=== PATIENT | female | born 1950 | race Caucasian/White ===

== ENCOUNTER 2016-09-19 09:22 | Emergency (ER) | payer MEDICARE, MEDICAID ==
[2016-09-19 10:29] LABS: Bilirubin Negative (Negative); Blood, Urine Negative (Negative); Clarity Clear (Clear); Glucose, Urine (Dipstick) Negative (Negative); Leukocyte Negative (Negative); Nitrite Negative (Negative); Protein, Urine (Dipstick) Negative (Neg-Trace); Specific Gravity, Urine 1.015 (1.005-1.030); Urobilinogen 0.2 mg/dL (0.2-1.0)
[2016-09-19 11:05] LABS: ALT (SGPT) 17 U/L (0-55); AST (SGOT) 15 U/L (5-34); Albumin 4.5 g/dL (3.4-4.8); Alkaline Phosphatase 89 U/L (40-150); Anion Gap 12 mmol/L (10-20); BUN (Urea Nitrogen) 14 mg/dL (9.8-20.1); Bilirubin, Total 0.4 mg/dL (0.2-1.2); Calc. Creatinine Clearance 0 mL/min (70-130); Calcium 9.2 mg/dL (7.8-10.44); Carbon Dioxide 23 mmol/L (23-31); Chloride 104 mmol/L (98-107); Estimated GFR-MDRD 81; Globulin 2.2 g/dL (2.4-3.5); Glucose 124 mg/dL (80-115); Potassium 4.3 mmol/L (3.5-5.1); Protein, Total 6.7 g/dL (5.8-8.1); Sodium 135 mmol/L (136-145)
== END 2016-09-19 11:25 | disposition home or self-care (01) ==
LOC: MADERS 09:22
DX: R33.9 Retention of urine, unspecified (principal); E03.9 Hypothyroidism, unspecified; E78.5 Hyperlipidemia, unspecified; E78.00 Pure hypercholesterolemia, unspecified; I10 Essential (primary) hypertension; Z79.899 Other long term (current) drug therapy
CPT/HCPCS: 36415; 51702; 80053; 81003

== ENCOUNTER 2016-09-20 08:25 | Emergency (ER) | payer MEDICARE, MEDICAID ==
[2016-09-20 09:44] LABS: Blood, Urine Moderate (Negative); Glucose, Urine (Dipstick) Negative (Negative); Leukocyte Large (Negative); Nitrite Negative (Negative); Protein, Urine (Dipstick) 100 mg/dL (Neg-Trace)
[2016-09-20 09:54] LABS: Bilirubin Negative (Negative); Clarity Hazy (Clear); Icto Negative (Negative)
[2016-09-20 09:55] LABS: Bacteria/HPF 1+ HPF (None Seen); Crystals/HPF 1+ AMORPH PHOS HPF (Negative); Other Microscopic Description C&S SET UP; Squamous Epithelial 0-3 HPF (0-3)
[2016-09-20] MEDS ORDERED: Sulfameth/Trimethoprim DS 800-160mg TAB ONE (10:14)
== END 2016-09-20 10:13 ==
LOC: MADERS 08:25
DX: T83.091A Other mechanical complication of indwelling urethral catheter, initial encounter (principal); N39.0 Urinary tract infection, site not specified; E03.9 Hypothyroidism, unspecified; E78.5 Hyperlipidemia, unspecified; I10 Essential (primary) hypertension
CPT/HCPCS: 51702; 81003; 81015; 87077; 87086; 87186

== ENCOUNTER 2016-09-26 20:35 | Emergency (ER) | payer MEDICARE, MEDICAID ==
[2016-09-26 21:13] LABS: Bilirubin Negative (Negative); Blood, Urine Negative (Negative); Clarity Clear (Clear); Glucose, Urine (Dipstick) Negative (Negative); Leukocyte Negative (Negative); Nitrite Negative (Negative); Protein, Urine (Dipstick) Negative (Neg-Trace); Specific Gravity, Urine 1.015 (1.005-1.030)
== END 2016-09-26 21:37 | disposition home or self-care (01) ==
LOC: MADERS 20:35
DX: R33.9 Retention of urine, unspecified (principal); E03.9 Hypothyroidism, unspecified; I10 Essential (primary) hypertension; E78.5 Hyperlipidemia, unspecified; E78.00 Pure hypercholesterolemia, unspecified; F31.9 Bipolar disorder, unspecified; G62.9 Polyneuropathy, unspecified
CPT/HCPCS: 81003; 87086; 99285

== ENCOUNTER 2017-03-11 08:35 | Outpatient (CLI) | payer MEDICARE, MEDICAID ==
[2017-03-11 09:13] LABS: Hemoglobin 9.7 g/dL (12.0-16.0); Mean Corpuscular HGB CONC 30.1 g/dL (32.0-36.0); Mean Corpuscular Hemoglobin 24.9 pg (27.0-31.0); Mean Corpuscular Volume 82.6 fl (81.0-99.0); Mean Platelet Volume 6.2 fL (7.4-10.4); Platelet Count 242 thou/uL (130-400); White Blood Cell (WBC) Count 6.2 thou/uL (4.8-10.8)
[2017-03-11 09:33] LABS: Anisocytosis SLIGHT = 6-15 cells (100X) (0-5/hpf); PLT Morphology Comment Appears Adequate
[2017-03-11 09:40] LABS: ALT (SGPT) 23 U/L (8-55); AST (SGOT) 17 U/L (5-34); Albumin 4.2 g/dL (3.4-4.8); Alkaline Phosphatase 82 U/L (40-150); Anion Gap 10 mmol/L (10-20); BUN (Urea Nitrogen) 10 mg/dL (9.8-20.1); Bilirubin, Total 0.3 mg/dL (0.2-1.2); Calc. Creatinine Clearance 0 mL/min (70-130); Calcium 9.4 mg/dL (7.8-10.44); Carbon Dioxide 26 mmol/L (23-31); Cardiac Risk 3.1 (Less than 4.5); Chloride 109 mmol/L (98-107); Cholesterol 127 mg/dl (< 200 Desired); Estimated GFR-MDRD 72; Globulin 2.6 g/dL (2.4-3.5); Glucose 113 mg/dL (80-115); HDL Cholesterol 41 mg/dL (>60 Neg Risk); LDL Cholesterol, Calculated 55 mg/dL; Potassium 4.3 mmol/L (3.5-5.1); Protein, Total 6.8 g/dL (6.0-8.3); Sodium 141 mmol/L (136-145); Triglycerides 153 mg/dL (Less than 150)
[2017-03-11 09:57] LABS: Free T4 (Free Thyroxine) 0.95 ng/dL (0.70-1.48); Thyroid Stimulating Hormone 1.3836 uIU/mL (0.35-4.94); Vitamin D, 25 Hydroxy 25.2 ng/ml (> 30.0)
== END 2017-03-11 08:36 | disposition home or self-care (01) ==
LOC: MADLABBHPM 08:35
PROVIDERS: ATTEND Family Medicine
DX: E03.9 Hypothyroidism, unspecified (principal); E78.1 Pure hyperglyceridemia; F31.9 Bipolar disorder, unspecified; M81.0 Age-related osteoporosis without current pathological fracture
CPT/HCPCS: 36415; 80053; 80061; 80178; 82306; 84439; 84443; 85025

== ENCOUNTER 2017-03-26 15:38 | Outpatient (CLI) | payer MEDICARE, MEDICAID ==
[2017-03-27 13:33] LABS: Bacteria/HPF 2+ HPF (None Seen); Bilirubin Negative (Negative); Blood, Urine Trace (Negative); Clarity Slightly Cloudy (Clear); Glucose, Urine (Dipstick) 100 mg/dL (Negative); Leukocyte Small (Negative); Nitrite Positive (Negative); Protein, Urine (Dipstick) 30 mg/dL (Neg-Trace); RBC/HPF 0-3 HPF (0-3); Specific Gravity, Urine 1.015 (1.005-1.030); WBC/HPF 21-50 HPF (0-3)
== END 2017-03-26 15:39 | disposition home or self-care (01) ==
LOC: MADLABBHPM 15:38
PROVIDERS: ATTEND Family Medicine
DX: R30.0 Dysuria (principal)
CPT/HCPCS: 81001; 87077; 87086; 87186

== ENCOUNTER 2017-12-15 10:54 | Outpatient (CLI) | payer MEDICARE, MEDICAID ==
[2017-12-15 11:20] LABS: INR-International Normal Ratio 1.1; Prothrombin Time 13.9 SEC (12.0-14.7)
[2017-12-15 11:21] LABS: PTT 28.1 SEC (22.9-36.1)
[2017-12-15 11:28] LABS: ALT (SGPT) 17 U/L (8-55); AST (SGOT) 14 U/L (5-34); Albumin 4.4 g/dL (3.4-4.8); Alkaline Phosphatase 64 U/L (40-150); Anion Gap 12 mmol/L (10-20); BUN (Urea Nitrogen) 17 mg/dL (9.8-20.1); Bilirubin, Total 0.4 mg/dL (0.2-1.2); Calc. Creatinine Clearance 0 mL/min (70-130); Calcium 9.6 mg/dL (7.8-10.44); Carbon Dioxide 24 mmol/L (23-31); Chloride 106 mmol/L (98-107); Estimated GFR-MDRD 71; Globulin 2.6 g/dL (2.4-3.5); Glucose 110 mg/dL (80-115); Potassium 4.4 mmol/L (3.5-5.1); Sodium 138 mmol/L (136-145)
[2017-12-15 12:13] LABS: Band 1 % (5-11); Eosinophils 1 % (0-10); Hemoglobin 10.5 g/dL (12.0-16.0); Hypochromia SLIGHT = 6-15 cells (100X) (0-5/hpf); Lymphocytes 34 % (21-51); MDiff Complete? YES; Mean Corpuscular HGB CONC 32.6 g/dL (32.0-36.0); Mean Corpuscular Hemoglobin 28.1 pg (27.0-31.0); Mean Corpuscular Volume 85.9 fl (81.0-99.0); Monocytes 6 % (0-10); Neutrophil 58 % (42-75); PLT Morphology Comment Appears Adequate; Platelet Count 221 thou/uL (130-400); RBC Distribution Width 15.6 % (11.5-14.5); Red Blood Cell (RBC) Count 3.75 mill/uL (4.20-5.40); White Blood Cell (WBC) Count 8.5 thou/uL (4.8-10.8)
--- NOTE | 2017-12-15 13:02 | RAD ---
CHEST PA AND LATERAL: History: 67-year-old female for pre-operative evaluation. Comparison: 10-09-15 FINDINGS: Heart size is within normal limits. The lungs are clear. No pneumonia, edema, pleural effusion. IMPRESSION: No acute intrathoracic disease. Atherosclerosis of the aorta. Stable from prior study. POS: OFF
== END 2017-12-15 10:55 | disposition home or self-care (01) ==
LOC: MADLABBHPM 10:54
PROVIDERS: ATTEND Family Medicine
DX: Z01.818 Encounter for other preprocedural examination (principal); I70.0 Atherosclerosis of aorta
CPT/HCPCS: 36415; 71046; 80053; 85025; 85610; 85730

== ENCOUNTER 2018-06-17 23:38 | Emergency (ER) | payer MEDICARE, MEDICAID | END 2018-06-18 00:30 | LOC: MADERS 23:38 | DX: S40.011A Contusion of right shoulder, initial encounter (principal); S00.03XA Contusion of scalp, initial encounter; E03.9 Hypothyroidism, unspecified; E78.1 Pure hyperglyceridemia; I10 Essential (primary) hypertension; G62.9 Polyneuropathy, unspecified; F31.9 Bipolar disorder, unspecified; Z79.891 Long term (current) use of opiate analgesic; Z79.899 Other long term (current) drug therapy; W17.89XA Other fall from one level to another, initial encounter | CPT/HCPCS: 99284 ==

== ENCOUNTER 2018-06-23 16:21 | Inpatient (IN) | payer MEDICARE, MEDICAID ==
[2018-06-23 16:30] VITALS: BMI 39.4
[2018-06-23] MEDS ORDERED: Acetaminophen 325 MG TAB PO PRN (17:15)
[2018-06-23] MEDS ORDERED: Ondansetron ODT 4 MG TAB PO PRN (17:15)
[2018-06-23] MEDS ORDERED: diphenhydrAMINE 25 MG CAP PO PRN (17:24)
[2018-06-23 18:07] LABS: #Lymphocytes 1.8 thou/uL (1.20-3.40); #Monocytes 0.9 thou/uL (0.11-0.59); %Basophils 0.5 % (0.0-1.0); %Eosinophils 0.1 % (0.0-10.0); %Lymphocytes 23.3 % (21.0-51.0); %Neutrophils 64.1 % (42.0-75.0); Hemoglobin 11.9 g/dL (12.0-16.0); Mean Corpuscular HGB CONC 33.9 g/dL (32.0-36.0); Mean Corpuscular Hemoglobin 33.1 pg (27.0-31.0); Mean Corpuscular Volume 97.5 fL (78.0-98.0); Mean Platelet Volume 5.7 fL (7.4-10.4); Platelet Count 195 thou/uL (130-400); RBC Distribution Width 14.4 % (11.5-14.5); Red Blood Cell (RBC) Count 3.59 mill/uL (4.20-5.40); White Blood Cell (WBC) Count 7.8 thou/uL (4.8-10.8)
[2018-06-23 18:22] LABS: ALT (SGPT) 18 U/L (8-55); AST (SGOT) 15 U/L (5-34); Albumin 4.5 g/dL (3.4-4.8); Alkaline Phosphatase 125 U/L (40-150); Anion Gap 11 mmol/L (10-20); BUN (Urea Nitrogen) 15 mg/dL (9.8-20.1); Bilirubin, Total 0.4 mg/dL (0.2-1.2); Calc. Creatinine Clearance 104 mL/min (70-130); Calcium 10.2 mg/dL (7.8-10.44); Carbon Dioxide 22 mmol/L (23-31); Chloride 107 mmol/L (98-107); Estimated GFR-MDRD 66; Globulin 2.3 g/dL (2.4-3.5); Glucose 119 mg/dL (80-115); Potassium 4.3 mmol/L (3.5-5.1); Protein, Total 6.8 g/dL (6.0-8.3); Sodium 136 mmol/L (136-145)
[2018-06-23 18:51] LABS: Bilirubin Negative (Negative); Blood, Urine Negative (Negative); Clarity Clear (Clear); Glucose, Urine (Dipstick) Negative (Negative); Leukocyte Small (Negative); Nitrite Negative (Negative); Protein, Urine (Dipstick) 30 mg/dL (Neg-Trace); Specific Gravity, Urine 1.015 (1.005-1.030); Urobilinogen 0.2 mg/dL (0.2-1.0); pH, Urine 7.5 (5.0-9.0)
[2018-06-23 19:03] LABS: RBC/HPF 0-3 HPF (0-3)
[2018-06-23 19:04] LABS: Bacteria/HPF Rare-Few HPF (None Seen)
[2018-06-23] MEDS: Nitrofurantoin Monohyd/M-Cryst 100 MG CAP PO SCH (20:04)
[2018-06-23] MEDS: Gabapentin 300 MG CAP PO SCH (20:05)
[2018-06-23] MEDS: Famotidine 20 MG TAB PO SCH (20:05)
[2018-06-23] MEDS: Ferrous Sulfate 325 MG TAB PO SCH (20:05)
[2018-06-23] MEDS: LITHIUM CARBONATE 450 MG PO SCH (21:48)
--- NOTE | 2018-06-24 02:06 | HP ---
PRIMARY CARE PHYSICIAN: Rabia Sher MD. CHIEF COMPLAINT: Generalized weakness, tremors, change in mental status, and urinary tract infection. HISTORY OF PRESENT ILLNESS: Ms. Sulma Muhammad is a 67-year-old female who is a resident of [facility] with a medical history of bipolar disorder, anxiety, multiple back surgeries, hypertension, and hyperlipidemia. The patient presented to my office today due to change in mental status in the assisted living, recurrent falls with generalized weakness. The patient had been seen in the emergency room on 06/17 and 06/22 due to weakness and falling. On the , she was noted to have urinary tract infection and given a prescription for Macrobid, but unfortunately urine culture was not done. Majority of report got is from aide in facility who stated that the patient has had increased urinary incontinence recently. She has fallen 3 times in the last 2 days, bumping the head while she falls. She is complaining of also unable to bear weight and some back pain and worsening of the tremors. The patient during conversation in the office today was somewhat confused and could not get a date or time intact and this is not her baseline. The patient denies any fever. She stated that she started the antibiotic yesterday as recommended by ED physician. In the emergency room, the patient was also noted to have a lung nodule and a CT of the chest was recommended. The patient stated that she was not aware of this. She denies any URI symptoms. She denies any diarrhea, constipation, or vomiting. She just complains of severe weakness, tremors, and just not feeling right. PAST MEDICAL HISTORY: Bipolar, herniated back disk, anxiety, hypothyroidism, neuropathic pain, hypertension, migraine, and prediabetes. PAST SURGICAL HISTORY: Thyroidectomy in 1976, hysterectomy in 1986; fusion of the herniated disk, lumbar spinal stenosis. SOCIAL HISTORY: The patient lives in assisted living. Denies alcohol or tobacco use or illicit drug use. ALLERGIES: OXYCONTIN, HALLUCINATION. TRAMADOL, URINARY RETENTION. CODE STATUS: Full code. FAMILY HISTORY: Noncontributory. MEDICATIONS: 1. Nitrofurantoin 100 b.i.d. 2. Abilify 15 daily. 3. Alendronate 70 once a week. 4. Atorvastatin 40 daily. 5. Clonazepam 0.5 b.i.d. p.r.n. anxiety. 6. Cymbalta 90 mg once a day. 7. Ferrous sulfate 325 b.i.d. 8. Fish oil 1400 daily. 9. Gabapentin 300 b.i.d. 10. Levothyroxine 100 daily. 11. Lisinopril 10 daily. 12. [place] 450 b.i.d. 13. Metoprolol succinate 25 daily. 14. Oxycodone/acetaminophen 10/325 one tablet b.i.d. 15. Pantoprazole 40 daily. 16. Tolterodine tartrate ER 4 daily. 17. Stool softener as needed. 18. MiraLAX once a day as needed. 19. Uristat 95 two tablets t.i.d. as needed. REVIEW OF SYSTEMS: CONSTITUTIONAL: Denies weight loss or weight gain. GENERAL: Complains of generalized weakness and tremors. CARDIOVASCULAR: Denies chest pain, palpitations, or orthopnea. RESPIRATORY: Denies cough or shortness of breath. GASTROINTESTINAL: Denies abdominal pain. Complains of poor appetite. Denies diarrhea or constipation. GENITOURINARY: Complains of urinary frequency and dysuria. MUSCULOSKELETAL: Complains of chronic back pain. NEUROLOGICAL: Complains of noted some confusion. No headaches. SKIN: Denies any rashes. PHYSICAL EXAMINATION: VITAL SIGNS: Temperature 98.0, pulse 72, respirations 18, O2 saturation 98% on room air, blood pressure 108/54. GENERAL: The patient is alert, awake, oriented x2, but fatigued and questions had to be asked multiple times. HEENT: Normocephalic, atraumatic. Pupils round, equal, reactive to light. Sclerae nonicteric. Mucous membranes moist without erythema or exudate. NECK: Supple. No JVD. CARDIOVASCULAR: S1 and S2. No murmur. LUNGS: Clear to ascultation bilaterally. ABDOMEN: Positive bowel sounds. Soft, nontender, nondistended. EXTREMITIES: No clubbing, cyanosis, or edema. NEUROLOGIC: No focal deficits. The patient is visibly weak and leaning to the side. ASSESSMENT AND PLAN: This is a 67-year-old female with multiple past medical histories including obstructive sleep apnea, bipolar, hypertension, chronic back pain, who presented with generalized weakness, change in altered mental status, recurrent falls, and urinary tract infection. The patient will be admitted to the medical floor for altered mental status, urinary tract infection, and falls. We will continue the patient on Macrobid b.i.d. We will get urine culture. We will restart all home medications. We will get CBC, CMP, lithium level, TSH, free T4. We will replace electrolytes and monitor hemodynamic status. We will place the patient on as-tolerated activity. The patient is a high fall risk. We will place the patient in a room close to the nurse's station. We will consult Physical Therapy once she is medically stable for this. We will get a CT chest once medically stable. Code status is a full code. Disposition; anticipate greater than 3-midnight stays due to altered mental status, weakness, and extensive comorbidities. We will plan to discharge the patient back to the assisted living once medically stable. Job ID: [id number] [facility]
[2018-06-24] MEDS: Levothyroxine Sodium 100 MCG TAB PO SCH (05:51)
[2018-06-24] MEDS ORDERED: DULOXETINE HCL 60 MG PO SCH (09:00)
[2018-06-24] MEDS: Nitrofurantoin Monohyd/M-Cryst 100 MG CAP PO SCH ×2 (09:03→20:32)
[2018-06-24] MEDS: Fish Oil 1,000 MG CAP PO SCH (09:03)
[2018-06-24] MEDS: DULoxetine 30 MG CAP PO SCH (09:03)
[2018-06-24] MEDS: Lisinopril 10 MG TAB PO SCH (09:03)
[2018-06-24] MEDS: Gabapentin 300 MG CAP PO SCH ×2 (09:03→20:32)
[2018-06-24] MEDS: Ferrous Sulfate 325 MG TAB PO SCH ×2 (09:03→20:33)
[2018-06-24] MEDS: Famotidine 20 MG TAB PO SCH ×2 (09:04→20:32)
[2018-06-24] MEDS: LITHIUM CARBONATE 450 MG PO SCH (09:57)
[2018-06-24] MEDS ORDERED: clonazePAM 0.5 MG TAB PO PRN (14:13)
[2018-06-24] MEDS ORDERED: Docusate 100 MG CAP PO PRN (14:13)
[2018-06-24] MEDS ORDERED: Alendronate Sodium 70 mg Tablet PO SCH (14:15)
[2018-06-24] MEDS ORDERED: oxyCODONE 5 MG TAB PO PRN (14:34)
[2018-06-24] MEDS: TROSPIUM 20 MG TABLET PO SCH (20:32)
[2018-06-24] MEDS: Atorvastatin Calcium 10 MG TAB PO SCH (20:32)
[2018-06-24] MEDS ORDERED: LITHIUM 450 MG PO SCH (21:00)
[2018-06-24] MEDS ORDERED: LITHIUM CARBONATE 450 MG PO SCH (21:00)
[2018-06-25] MEDS: Levothyroxine Sodium 100 MCG TAB PO SCH (05:32)
[2018-06-25] MEDS: Nitrofurantoin Monohyd/M-Cryst 100 MG CAP PO SCH ×2 (08:35→20:49)
[2018-06-25] MEDS: Aripiprazole 10 MG TAB PO SCH (08:35)
[2018-06-25] MEDS: Ferrous Sulfate 325 MG TAB PO SCH ×2 (08:36→20:50)
[2018-06-25] MEDS: Gabapentin 300 MG CAP PO SCH ×2 (08:36→20:50)
[2018-06-25] MEDS: Fish Oil 1,000 MG CAP PO SCH (08:36)
[2018-06-25] MEDS: Multivitamin W/ Minerals 1 TAB PO SCH (08:36)
[2018-06-25] MEDS: TROSPIUM 20 MG TABLET PO SCH ×2 (08:36→20:50)
[2018-06-25] MEDS: Lisinopril 10 MG TAB PO SCH (08:37)
[2018-06-25] MEDS: Famotidine 20 MG TAB PO SCH ×2 (08:37→20:50)
[2018-06-25] MEDS: DULoxetine 30 MG CAP PO SCH (08:42)
[2018-06-25] MEDS ORDERED: Lantiseptic Ointment 130 GM JAR TOP PRN (15:52)
[2018-06-25] MEDS: Atorvastatin Calcium 10 MG TAB PO SCH (20:48)
--- NOTE | 2018-06-25 20:51 | CT ---
CHEST CT 06/25/18 HISTORY: Lung nodule seen on prior chest radiograph on the right. TECHNIQUE: Axial CT imaging at 5 mm intervals from thoracic inlet through lung bases with IV contrast. Coronal r eformatted imaging obtained. FINDINGS: Of note, the inferior aspect of both lungs is incompletely imaged. There is no axillary, hilar, or mediastinal lymphadenopathy. No pleural, pericardial, or mediastinal fluid. There are a few scattered hepatic hypodensities within the imaged hepatic parenchyma, too small to ch aracterize. The area of concern on recent chest x-ray corresponds with old anterior right sided rib fractures inv olving the fifth and sixth ribs on the right. No pulmonary parenchymal mass lesion or nodule is seen in this region. There are a few scattered tiny pulmonary nodules noted within the right lower lobe, best seen on imag e 37, only measuring up to approximately 2-3 mm, thus of doubtful clinical significance. There is a t iny nodule in the left lower lobe measuring 2 mm on image 47. An additional nodule is seen in the lef t upper lobe on image 14 measuring 3 mm. Review of the osseous structures demonstrate no acute findings. IMPRESSION: The area of concern on recent chest radiograph correlates with old right sided rib fractures. Tiny bi lateral pulmonary nodules are noted. POS: [facility]
[2018-06-26] MEDS: Levothyroxine Sodium 100 MCG TAB PO SCH (05:49)
[2018-06-26 06:50] LABS: #Monocytes 1.1 thou/uL (0.11-0.59); #Neutrophils 4.7 thou/uL (1.40-6.50); %Basophils 0.6 % (0.0-1.0); %Eosinophils 0.3 % (0.0-10.0); %Lymphocytes 25.5 % (21.0-51.0); %Monocytes 14.2 % (0.0-10.0); %Neutrophils 59.4 % (42.0-75.0); Hemoglobin 12.5 g/dL (12.0-16.0); Mean Corpuscular HGB CONC 34.9 g/dL (32.0-36.0); Mean Corpuscular Hemoglobin 33.1 pg (27.0-31.0); Mean Corpuscular Volume 94.9 fL (78.0-98.0); Mean Platelet Volume 5.9 fL (7.4-10.4); Platelet Count 213 thou/uL (130-400); RBC Distribution Width 13.5 % (11.5-14.5); Red Blood Cell (RBC) Count 3.78 mill/uL (4.20-5.40); White Blood Cell (WBC) Count 7.8 thou/uL (4.8-10.8)
[2018-06-26 07:02] LABS: Anion Gap 13 mmol/L (10-20); BUN (Urea Nitrogen) 11 mg/dL (9.8-20.1); Calc. Creatinine Clearance 113 mL/min (70-130); Calcium 10.4 mg/dL (7.8-10.44); Carbon Dioxide 18 mmol/L (23-31); Chloride 109 mmol/L (98-107); Estimated GFR-MDRD 73; Glucose 107 mg/dL (80-115); Potassium 4.2 mmol/L (3.5-5.1); Sodium 136 mmol/L (136-145)
[2018-06-26 07:32] VITALS: BP 116/66; TEMP 98.6
[2018-06-26] MEDS: Aripiprazole 10 MG TAB PO SCH (08:47)
[2018-06-26] MEDS: Fish Oil 1,000 MG CAP PO SCH (08:47)
[2018-06-26] MEDS: TROSPIUM 20 MG TABLET PO SCH (08:48)
[2018-06-26] MEDS: Multivitamin W/ Minerals 1 TAB PO SCH (08:48)
[2018-06-26] MEDS: Lisinopril 10 MG TAB PO SCH (08:48)
[2018-06-26] MEDS: Nitrofurantoin Monohyd/M-Cryst 100 MG CAP PO SCH (08:48)
[2018-06-26] MEDS: Gabapentin 300 MG CAP PO SCH (08:48)
[2018-06-26] MEDS: Famotidine 20 MG TAB PO SCH (08:49)
[2018-06-26] MEDS: DULoxetine 30 MG CAP PO SCH (08:49)
[2018-06-26] MEDS: Ferrous Sulfate 325 MG TAB PO SCH (08:49)
--- NOTE | 2018-06-27 01:03 | DIS ---
DATE OF ADMISSION: 06/23/2018 DATE OF DISCHARGE: 06/26/2018 DISCHARGING AND PRIMARY CARE PHYSICIAN: Rabia Sher MD DISCHARGE DIAGNOSES: 1. Altered mental status, resolved. 2. Generalized weakness, improving. 3. Urinary tract infection, resolved. 4. [place] toxicity, resolved. 5. Tremors, resolved. DISCHARGE MEDICATIONS: 1. [place] 300 b.i.d. 2. Nitrofurantoin 100 b.i.d. x3 days. 3. Lipitor 40 daily. 4. Fosamax 70 q weekly. 5. Clonazepam 0.5 b.i.d. p.r.n. 6. Benadryl 25 p.r.n. q.4-6. 7. Docusate 100 daily p.r.n. 8. Cymbalta 90 daily. 9. Ferrous sulfate 325 b.i.d. 10. Gabapentin 300 b.i.d. 11. Levothyroxine 100 daily. 12. Lisinopril 10 daily. 13. Metoprolol 25 daily. 14. Multivitamin 1 tab daily. 15. Percocet 5/325 one tab q.6 hours p.r.n. 16. Protonix 40 daily. 17. MiraLax 1 pack daily p.r.n. 18. Tolterodine tartrate ER 4 mg daily. DISCHARGE ACTIVITY: Ad omkar as tolerated. DIET: Heart healthy. FOLLOWUP INSTRUCTIONS: Followup with PCP in 3 days. [facility] to resume PT/OT services. The patient to ambulate with 4-wheeled walker at all times. Repeat lithium level in 3 days. DISCHARGE DISPOSITION: Assisted living in [place]. DISCHARGE CONDITION: Stable. BRIEF HOSPITAL COURSE: Ms. Sulma Muhammad is a 67-year-old female, who presented to my office on the 23 of June due to new onset of confusion and multiple falls in assisted living and 2 ER visits due to falls and generalized weakness. The patient presented to the ER on the and on the , she was diagnosed with a urinary tract infection and started on Macrobid twice a day. The patient was noted to be weak and facility members noted the patient was having tremors and confusion. The patient was seen in my office and she was noted to be confused, having shakes, tremors and the decision was made to admit the patient for further workup and possible physical therapy once medically stable. The patient was continued on urinary tract infection medication, Macrobid and labs were ordered. Labs came back negative other than her lithium level was elevated at 2.4. The patient had been on 450 lithium b.i.d. and medication was stopped. [place] levels were trended and continued to decline. On day of discharge, lithium level was back to 1.4 and the patient was back to her baseline. During emergency visit, the patient was also noted to have a new right lung nodule and a CAT scan of the lungs was done while in the hospital and showed the right side nodule noted on the x-ray was actually an old rib fracture. The patient's daughter was kept up to date throughout her hospitalization and patient was subsequently noted to be stable and able to return to [facility]. Physical Therapy was able to evaluate the patient and noted she just needed supervision and some assistance and therapy could be continued in the assisted living facility. The patient's lithium 450 was discontinued and she was restarted on 300 mg b.i.d. She was also recommended to follow up with her psychiatrist. Patient was subsequently discharged back to the [facility] in a stable condition. Job ID: [id number] [facility]
== END 2018-06-26 13:55 | DRG 690 ==
LOC: MADMS 16:21
PROVIDERS: ADMIT Family Medicine; ATTEND Family Medicine
DX: N39.0 Urinary tract infection, site not specified (principal); G47.33 Obstructive sleep apnea (adult) (pediatric); I10 Essential (primary) hypertension; F31.9 Bipolar disorder, unspecified; Z91.81 History of falling; E03.9 Hypothyroidism, unspecified; G25.2 Other specified forms of tremor
CPT/HCPCS: 36415; 71260; 80048; 80053; 80178; 81001; 85025; 87086; G8978-GP-CK; G8979-GP-CJ; G8987-GO-CK; G8988-GO-CH

== ENCOUNTER 2019-04-13 08:49 | Emergency (ER) | payer MEDICARE, MEDICAID ==
[2019-04-13 09:59] LABS: Bilirubin Negative (Negative); Blood, Urine Trace (Negative); Glucose, Urine (Dipstick) Negative (Negative); Leukocyte Small (Negative); Nitrite Negative (Negative); Protein, Urine (Dipstick) Negative (Neg-Trace); Urobilinogen 0.2 mg/dL (Less than 2)
[2019-04-13 10:01] LABS: Clarity Hazy (Clear)
[2019-04-13 10:03] LABS: RBC/HPF 0-3 HPF (0-3)
[2019-04-13 10:04] LABS: Bacteria/HPF 2+ HPF (None Seen); Squamous Epithelial 0-3 HPF (0-3)
== END 2019-04-13 12:05 | disposition home or self-care (01) ==
LOC: MADERS 08:49
DX: N39.0 Urinary tract infection, site not specified (principal); E03.9 Hypothyroidism, unspecified; E78.5 Hyperlipidemia, unspecified; E78.2 Mixed hyperlipidemia; I10 Essential (primary) hypertension; F31.9 Bipolar disorder, unspecified; Z79.899 Other long term (current) drug therapy
CPT/HCPCS: 51702; 81003; 81015

== ENCOUNTER 2020-09-13 10:21 | Emergency (ER) | payer MEDICARE, MEDICAID ==
[2020-09-13 11:20] LABS: Prothrombin Time 13.1 sec (12.0-14.7)
--- NOTE | 2020-09-13 11:21 | RAD ---
Portable frontal chest radiograph: 09/13/2020 COMPARISON: 06/22/2018 HISTORY: Fall FINDINGS: There is a probable old right sixth rib fracture. Heart and mediastinal contours are stable . There is atherosclerotic calcification of the aortic arch. There is no focal consolidation or alveolar edema. IMPRESSION: No focal consolidation or alveolar edema.
--- NOTE | 2020-09-13 11:22 | RAD ---
EXAM: XR Pelvis AP STANDARD PROVIDED CLINICAL HISTORY: Injury after a fall COMPARISON: 11/28/2015 FINDINGS: Extensive postoperative changes visualized lower lumbar spine are seen. No fracture or dislocation is seen on single AP view of the pelvis. Mild degenerative changes are seen in the pubic symphysis. Phleboliths overlie the left hemipelvis. No interval change when compared to prior exam. IMPRESSION: Stable view of the pelvis. No acute osseous abnormality is seen.
[2020-09-13 11:23] LABS: #Basophils 0.1 thou/uL (0.0-0.2); #Eosinphils 0.1 thou/uL (0.0-0.7); #Lymphocytes 1.8 thou/uL (1.20-3.40); #Monocytes 1.3 thou/uL (0.11-0.59); #Neutrophils 5.8 thou/uL (1.40-6.50); %Basophils 0.7 % (0.0-1.0); %Lymphocytes 19.6 % (21.0-51.0); %Monocytes 14.4 % (0.0-10.0); %Neutrophils 64.2 % (42.0-75.0); Mean Corpuscular HGB CONC 34.2 g/dL (32.0-36.0); Mean Corpuscular Hemoglobin 34.1 pg (27.0-31.0); Mean Corpuscular Volume 99.6 fL (78.0-98.0); Mean Platelet Volume 6.2 fL (7.4-10.4); Platelet Count 150 thou/uL (130-400); RBC Distribution Width 11.7 % (11.5-14.5); Red Blood Cell (RBC) Count 3.52 mill/uL (4.20-5.40); White Blood Cell (WBC) Count 9.1 thou/uL (4.8-10.8)
[2020-09-13 11:26] LABS: Anisocytosis SLIGHT = 6-15 cells (100X) (0-5/hpf); Platelet Morphology Comment Appears Adequate
[2020-09-13 11:34] LABS: ALT (SGPT) 39 U/L (8-55); AST (SGOT) 20 U/L (5-34); Albumin 4.2 g/dL (3.4-4.8); Alkaline Phosphatase 78 U/L (40-110); Anion Gap 12 mmol/L (10-20); BUN (Urea Nitrogen) 27 mg/dL (9.8-20.1); Bilirubin, Total 0.4 mg/dL (0.2-1.2); Calc. Creatinine Clearance 0 mL/min (70-130); Calcium 10.3 mg/dL (7.8-10.44); Carbon Dioxide 28 mmol/L (23-31); Chloride 101 mmol/L (98-107); Globulin 2.3 g/dL (2.4-3.5); Glucose 117 mg/dL (80-115); Potassium 4.2 mmol/L (3.5-5.1); Protein, Total 6.5 g/dL (5.8-8.1); Sodium 137 mmol/L (136-145)
--- NOTE | 2020-09-13 11:47 | CT ---
CT BRAIN WITHOUT CONTRAST: HISTORY: Fall. COMPARISON: CT brain 06/22/2018. FINDINGS: No acute hemorrhage or infarct. No midline shift or mass effect. Ventricular size and extraaxial CS F spaces are normal. Calvarium is intact. Paranasal sinuses and mastoids are relatively clear. IMPRESSION: No acute intracranial abnormality. POS: HOME
[2020-09-13 13:11] LABS: Bilirubin Negative (Negative); Blood, Urine Trace (Negative); Clarity Slightly Cloudy (Clear); Glucose, Urine (Dipstick) Negative (Negative); Ketone, Urine Negative (Negative); Leukocyte Moderate (Negative); Nitrite Negative (Negative); Protein, Urine (Dipstick) Negative (Neg-Trace); Urobilinogen 0.2 mg/dL (Less than 2)
[2020-09-13 13:36] LABS: Bacteria/HPF 1+ HPF (None Seen); RBC/HPF 0-3 HPF (0-3); Squamous Epithelial 0-3 HPF (0-3); WBC/HPF 21-50 HPF (0-3)
[2020-09-13] MEDS ORDERED: Lidocaine 2% 20 ml MDV ONE (14:04)
[2020-09-13] MEDS ORDERED: cefTRIAXone\\ROCEPHIN 1 GM VIAL ONE (14:04)
== END 2020-09-13 15:30 | disposition home or self-care (01) ==
LOC: MADERS 10:21
DX: N39.0 Urinary tract infection, site not specified (principal); R53.1 Weakness; E03.9 Hypothyroidism, unspecified; E78.1 Pure hyperglyceridemia; E78.00 Pure hypercholesterolemia, unspecified; G62.9 Polyneuropathy, unspecified; I10 Essential (primary) hypertension; Z79.899 Other long term (current) drug therapy; W01.0XXA Fall on same level from slipping, tripping and stumbling without subsequent striking against object, initial encounter
CPT/HCPCS: 36415; 70450; 71045; 72170; 80053; 81003; 81015; 85025; 85610; 87077; 87086; 87186; 93005; 96372; J0696

== ENCOUNTER 2021-01-30 15:08 | Emergency (ER) | payer MEDICARE, MEDICAID ==
[2021-01-30] MEDS ORDERED: cefTRIAXone\\ROCEPHIN 1 GM VIAL ONE ×2 (15:54→18:41)
[2021-01-30] MEDS ORDERED: Sodium Chloride 0.9% 2,000 ML ONE (15:54)
[2021-01-30] MEDS ORDERED: Sodium Chloride 0.9% 1,000 ML ONE ×2 (15:54→16:58)
[2021-01-30 16:01] LABS: Bilirubin Small (Negative); Blood, Urine Large (Negative); Glucose, Urine (Dipstick) Negative (Negative); Ketone, Urine Trace mg/dL (Negative); Leukocyte Large (Negative); Nitrite Negative (Negative); Protein, Urine (Dipstick) > or equal to 300 mg/dL (Neg-Trace); Specific Gravity, Urine 1.025 (1.005-1.030); pH, Urine 5.5 (5.0-9.0)
[2021-01-30 16:04] LABS: Clarity Cloudy (Clear)
[2021-01-30 16:13] LABS: Bacteria/HPF Rare-Few HPF (None Seen); Squamous Epithelial 0-3 HPF (0-3); WBC/HPF Greater Than 50 HPF (0-3)
[2021-01-30 16:17] LABS: ALT (SGPT) 27 U/L (8-55); AST (SGOT) 58 U/L (5-34); Albumin 3.6 g/dL (3.4-4.8); Alkaline Phosphatase 64 U/L (40-110); Anion Gap 21 mmol/L (10-20); BUN (Urea Nitrogen) 56 mg/dL (9.8-20.1); Bilirubin, Total 0.8 mg/dL (0.2-1.2); Calc. Creatinine Clearance 0 mL/min (70-130); Calcium 8.7 mg/dL (7.8-10.44); Carbon Dioxide 18 mmol/L (23-31); Chloride 93 mmol/L (98-107); Glucose 149 mg/dL (80-115); Potassium 3.7 mmol/L (3.5-5.1); Protein, Total 6.6 g/dL (5.8-8.1); Sodium 128 mmol/L (136-145)
[2021-01-30 16:21] LABS: Hemoglobin 12.3 g/dL (12.0-16.0); Mean Corpuscular HGB CONC 34.8 g/dL (32.0-36.0); Mean Corpuscular Hemoglobin 33.2 pg (27.0-31.0); Mean Corpuscular Volume 95.5 fL (78.0-98.0); Mean Platelet Volume 7.8 fL (7.4-10.4); Platelet Count 128 thou/uL (130-400); RBC Distribution Width 11.9 % (11.5-14.5); Red Blood Cell (RBC) Count 3.69 mill/uL (4.20-5.40); White Blood Cell (WBC) Count 22.1 thou/uL (4.8-10.8)
[2021-01-30 16:22] LABS: Band 16 % (5-11); Lymphocytes 2 % (21-51); MDiff Complete? YES; Manual Diff?? YES; Monocytes 6 % (0-10); Neutrophil 75 % (42-75); Platelet Morphology Comment PLT clumps seen-LOW; Polychromasia SLIGHT = 2-3 cells (100X) (0-2/hpf); Reactive Lymphocytes 1 % (0-10)
[2021-01-30 18:37] LABS: Lactic Acid 1.4 mmol/L (0.5-2.2)
== END 2021-01-30 21:36 | disposition short-term general hospital (02) ==
LOC: MADERS 15:08
DX: A41.9 Sepsis, unspecified organism (principal); N39.0 Urinary tract infection, site not specified; R00.0 Tachycardia, unspecified; G43.909 Migraine, unspecified, not intractable, without status migrainosus; G47.30 Sleep apnea, unspecified; E03.9 Hypothyroidism, unspecified; E78.5 Hyperlipidemia, unspecified; E78.00 Pure hypercholesterolemia, unspecified; E78.1 Pure hyperglyceridemia; I10 Essential (primary) hypertension; Z79.899 Other long term (current) drug therapy
CPT/HCPCS: 51701; 71045; 80053; 81003; 81015; 83605; 83880; 84484; 85025; 87040; 87077; 87086; 87149; 87186; 93005; 96365; 96376; J0696; J7050

== ENCOUNTER 2022-02-21 11:25 | Emergency (ER) | payer MEDICARE, OTHER ==
[2022-02-21 12:55] LABS: Hemoglobin 11.6 g/dL (12.0-16.0); Mean Corpuscular HGB CONC 33.5 g/dL (32.0-36.0); Mean Corpuscular Hemoglobin 33.4 pg (27.0-31.0); Mean Corpuscular Volume 99.6 fL (78.0-98.0); Mean Platelet Volume 8.8 fL (7.4-10.4); Platelet Count 140 thou/uL (130-400); RBC Distribution Width 12.6 % (11.5-14.5); Red Blood Cell (RBC) Count 3.46 mill/uL (4.20-5.40); White Blood Cell (WBC) Count 7.9 thou/uL (4.8-10.8)
[2022-02-21 13:02] LABS: Bilirubin Negative (Negative); Blood, Urine Trace (Negative); Glucose, Urine (Dipstick) Negative (Negative); Ketone, Urine Negative (Negative); Leukocyte Negative (Negative); Nitrite Negative (Negative); Protein, Urine (Dipstick) Negative (Neg-Trace); Urobilinogen 0.2 mg/dL (Less than 2); pH, Urine 5.5 (5.0-9.0)
[2022-02-21 13:07] LABS: Manual Diff?? YES
[2022-02-21 13:08] LABS: Anisocytosis SLIGHT = 6-15 cells (100X) (0-5/hpf); Band 2 % (5-11); Eosinophils 1 % (0-10); Lymphocytes 25 % (21-51); MDiff Complete? YES; Monocytes 13 % (0-10); Neutrophil 59 % (42-75); Platelet Morphology Comment Appears Adequate
[2022-02-21 13:11] LABS: ALT (SGPT) 20 U/L (8-55); AST (SGOT) 18 U/L (5-34); Albumin 4.4 g/dL (3.4-4.8); Alkaline Phosphatase 58 U/L (40-110); Anion Gap 14 mmol/L (10-20); BUN (Urea Nitrogen) 21 mg/dL (9.8-20.1); Bilirubin, Total 0.6 mg/dL (0.2-1.2); Calc. Creatinine Clearance 0 mL/min (70-130); Carbon Dioxide 27 mmol/L (23-31); Chloride 103 mmol/L (98-107); Estimated GFR 57; Globulin 2.7 g/dL (2.4-3.5); Glucose 111 mg/dL (80-115); Potassium 3.9 mmol/L (3.5-5.1); Protein, Total 7.1 g/dL (5.8-8.1); Sodium 140 mmol/L (136-145)
[2022-02-21 13:13] LABS: Clarity Clear (Clear)
[2022-02-21 13:14] LABS: Bacteria/HPF Rare-Few HPF (None Seen); RBC/HPF 0-3 HPF (0-3); Squamous Epithelial 0-3 HPF (0-3); WBC/HPF 0-3 HPF (0-3)
== END 2022-02-21 14:52 | disposition home or self-care (01) ==
LOC: MADERS 11:25
DX: R33.9 Retention of urine, unspecified (principal); E03.9 Hypothyroidism, unspecified; E78.5 Hyperlipidemia, unspecified; E78.00 Pure hypercholesterolemia, unspecified; E78.1 Pure hyperglyceridemia; I10 Essential (primary) hypertension; Z79.899 Other long term (current) drug therapy
CPT/HCPCS: 36415; 51702; 80053; 81003; 81015; 85025; 87086

== ENCOUNTER 2022-06-01 12:20 | Emergency (ER) | payer OTHER ==
[2022-06-01] MEDS ORDERED: Aspirin Chewable 81 MG TAB ONE (13:31)
[2022-06-01 13:53] LABS: ALT (SGPT) 21 U/L (8-55); AST (SGOT) 18 U/L (5-34); Albumin 4.3 g/dL (3.4-4.8); Alkaline Phosphatase 60 U/L (40-110); Anion Gap 17 mmol/L (10-20); BUN (Urea Nitrogen) 19 mg/dL (9.8-20.1); Bilirubin, Total 0.4 mg/dL (0.2-1.2); Calc. Creatinine Clearance 0 mL/min (70-130); Calcium 9.3 mg/dL (7.8-10.44); Carbon Dioxide 26 mmol/L (23-31); Chloride 102 mmol/L (98-107); Estimated GFR 54; Globulin 2.7 g/dL (2.4-3.5); Glucose 118 mg/dL (80-115); Lipase 33 U/L (8-78); Magnesium 2.1 mg/dL (1.6-2.6); Potassium 3.9 mmol/L (3.5-5.1); Sodium 141 mmol/L (136-145)
[2022-06-01 14:00] LABS: Band 1 % (5-11); Hemoglobin 11.2 g/dL (12.0-16.0); Lymphocytes 29 % (21-51); MDiff Complete? YES; Manual Diff?? YES; Mean Corpuscular Hemoglobin 34.8 pg (27.0-31.0); Mean Corpuscular Volume 99.5 fl (78.0-98.0); Mean Platelet Volume 6.6 fL (7.4-10.4); Monocytes 5 % (0-10); Neutrophil 36 % (42-75); Platelet Count 144 thou/uL (130-400); Platelet Morphology Comment Appears Adequate; Polychromasia SLIGHT = 2-3 cells (100X) (0-2/hpf); RBC Distribution Width 13.2 % (11.5-14.5); Reactive Lymphocytes 29 % (0-10); Red Blood Cell (RBC) Count 3.21 mill/uL (4.20-5.40); White Blood Cell (WBC) Count 4.4 thou/uL (4.8-10.8)
[2022-06-01] MEDS ORDERED: Sodium Chloride 0.9% 500 ML ONE (17:06)
[2022-06-01 17:18] LABS: Troponin I Less than 0.010 ng/mL (< 0.028)
[2022-06-01 19:53] LABS: Troponin I Less than 0.010 ng/mL (< 0.028)
== END 2022-06-01 20:10 | disposition home or self-care (01) ==
LOC: MADERS 12:20
DX: R07.89 Other chest pain (principal); I10 Essential (primary) hypertension; E03.9 Hypothyroidism, unspecified; E78.2 Mixed hyperlipidemia
CPT/HCPCS: 36415; 71045; 80053; 83690; 83735; 83880; 84484; 85025; 93005; J7030

== ENCOUNTER 2022-10-09 15:25 | Emergency (ER) | payer OTHER, MEDICAID ==
[2022-10-09] MEDS ORDERED: Sodium Chloride 0.9% 1,000 ML ONE (15:54)
[2022-10-09] MEDS ORDERED: Ketorolac Tromethamine 30 MG/ML VIAL ONE (15:54)
[2022-10-09] MEDS ORDERED: Prochlorperazine 10 MG/2 ML VIAL ONE (15:54)
[2022-10-09] MEDS ORDERED: diphenhydrAMINE 50 MG/ML VIAL ONE (15:54)
[2022-10-09 16:26] LABS: Anisocytosis SLIGHT = 6-15 cells (100X) (0-5/hpf); Hypochromia SLIGHT = 6-15 cells (100X) (0-5/hpf); Lymphocytes 41 % (21-51); MDiff Complete? YES; Mean Corpuscular HGB CONC 35.8 g/dL (32.0-36.0); Mean Corpuscular Hemoglobin 33.6 pg (27.0-31.0); Mean Platelet Volume 6.5 fL (7.4-10.4); Monocytes 20 % (0-10); Neutrophil 39 % (42-75); Platelet Count 166 10x3/uL (130-400); Platelet Morphology Comment Appears Adequate; RBC Distribution Width 12.9 % (11.5-14.5); Red Blood Cell (RBC) Count 3.58 mill/uL (4.20-5.40); White Blood Cell (WBC) Count 6.3 10x3/uL (4.8-10.8)
[2022-10-09 16:28] LABS: Chloride 100 mmol/L (98-107); Potassium 4.3 mmol/L (3.5-5.1); Sodium 138 mmol/L (136-145)
[2022-10-09 16:29] LABS: ALT (SGPT) 27 U/L (8-55); AST (SGOT) 27 U/L (5-34); Albumin 4.6 g/dL (3.4-4.8); Alkaline Phosphatase 62 U/L (40-110); Anion Gap 12 mmol/L (10-20); BUN (Urea Nitrogen) 17 mg/dL (9.8-20.1); Bilirubin, Total 0.4 mg/dL (0.2-1.2); Calc. Creatinine Clearance 0 mL/min (70-130); Calcium 10.3 mg/dL (7.8-10.44); Carbon Dioxide 30 mmol/L (23-31); Estimated GFR 62; Globulin 3.2 g/dL (2.4-3.5); Glucose 108 mg/dL (80-115); Magnesium 2.2 mg/dL (1.6-2.6); Protein, Total 7.8 g/dL (5.8-8.1)
[2022-10-09] MEDS ORDERED: Meclizine HCl 25 MG TAB ONE ×2 (17:08→17:38)
[2022-10-09 17:49] LABS: Bilirubin Negative (Negative); Blood, Urine Negative (Negative); Glucose, Urine (Dipstick) Negative (Negative); Ketone, Urine Negative (Negative); Leukocyte Small (Negative); Nitrite Negative (Negative); Protein, Urine (Dipstick) Negative (Neg-Trace); Specific Gravity, Urine 1.015 (1.005-1.030); Urobilinogen 0.2 mg/dL (Less than 2)
[2022-10-09 17:51] LABS: Clarity Hazy (Clear)
[2022-10-09 17:55] LABS: RBC/HPF 0-3 HPF (0-3); Squamous Epithelial 0-3 HPF (0-3)
[2022-10-09 17:56] LABS: Bacteria/HPF 1+ HPF (None Seen)
== END 2022-10-09 18:10 | disposition home or self-care (01) ==
LOC: MADERS 15:25
DX: R51.9 Headache, unspecified (principal); N39.0 Urinary tract infection, site not specified; R42 Dizziness and giddiness; E78.5 Hyperlipidemia, unspecified; I10 Essential (primary) hypertension
CPT/HCPCS: 70450; 80053; 81003; 81015; 83735; 83880; 85025; 87077; 87086; 87186; 93005; 96374; 96375; J0780; J1200; J1885; J7050